=== PATIENT | female | born 1940 | race Caucasian/White ===

== ENCOUNTER 2016-02-24 17:16 | Outpatient (RCR) | payer MEDICARE ==
[2016-02-24 17:56] LABS: ALBUMIN 4.1 g/dL (3.4-5.0); ALKALINE PHOSPHATASE 48 U/L (38-126); ANION GAP 15.5 MEQ/L (3-15); BUN/CREATININE RATIO 18 (10-20); TOTAL PROTEIN 6.4 g/dL (6.4-8.5)
[2016-02-25 09:01] LABS: MEAN CORPUSCULAR HGB CONC 32.6 g/dL (31.0-37.0); PLATELET COUNT 71 10^3uL (150-450); WHITE BLOOD COUNT 8.75 10^3uL (4.0-11.0)
[2016-02-25 09:06] LABS: MEAN CORPUSCULAR HEMOGLOBIN 32.9 PG (26.0-34.0); MEAN CORPUSCULAR VOLUME 101 FL (80-100)
[2016-02-25 09:37] LABS: BAND NEUTROPHILS % 5 % (0-6)
[2016-02-25 09:38] LABS: EOSINOPHILS % 2 % (0-4); LYMPHOCYTES # 1.6 #; MONOCYTES # 1.8 #; MONOCYTES % 22 % (3-11); NUCLEATED RED BLOOD CELLS 3; RBC MORPH SEE REFERENCE (NORMAL); SEGMENTED NEUTROPHILS % 53 % (51-67); TOTAL CELLS COUNTED 100
[2016-02-25 09:39] LABS: ANISOCYTOSIS SLIGHT; MICROCYTOSIS SLIGHT
[2016-02-25 13:19] LABS: GGT 16 U/L (3-36)
== END 2016-05-24 | disposition home or self-care (01) ==
LOC: LAB 17:16 → EDSTATUS 02-25 08:36
PROVIDERS: ATTEND Internal Medicine Hematology & Oncology
DX: D69.3 Immune thrombocytopenic purpura (principal); D53.9 Nutritional anemia, unspecified; D69.6 Thrombocytopenia, unspecified; B18.2 Chronic viral hepatitis C
CPT/HCPCS: 36415; 80048; 80053; 80076; 82248; 82977; 83010; 83615; 85025; 85610

== ENCOUNTER 2016-03-25 09:41 | Day surgery (SDC) | payer MEDICARE ==
[~2016-03-25] VITALS: Ht 160 cm; Wt 80.0 kg
[2016-03-25] VITALS (8 sets, daily range): BP systolic 115–152; BP diastolic 49–79
[~2016-03-25 09:41] MED LIST: ACETAMINOPHEN 500 MG TAB (TYLENOL) PO SCH; AMLO10TA4; AMLO10TA82 PO; ASPI-479; ASPI325T4 PO; ATOR40TA2 PO; AZIT250T81 PO; CETI-262 PO; CYCL1DRO OU; CYCL1DRO2 OP; ENAL20TA74; FA/V1CAP2 PO; FERR-74 PO; INDA2.5T2; KCL20TCR; LACTATED RINGERS 1,000 ML IV SCH; LSNP10T PO; LSNP20T PO; MELO-249 PO; MELO-255; MELO-255 PO; MULT-1026 PO; OMEG300C3; OMEP20CA12 PO; OMG1KC PO; SODIUM CHLORIDE FLUSH 3 ML SYR IV SCH; SULF-228 PO; VIT1CAPS9 PO; [UNRECOGNIZED DRUG - CODE]; ceFAZolin 2,000 MG in SODIUM CHLORIDE VIAL (PF) 20 ML IV SCH; oxyCODONE IMMEDIATE RELEASE 5 MG (OXYIR) TAB PO SCH
[2016-03-25] MEDS ORDERED: BUPIVACAINE/EPINEPHRINE 0.25%-1:200,000 (MARCAINE) 30 ML VIAL INJ ONE (11:27)
[2016-03-25] MEDS ORDERED: LIDOCAINE/EPINEPHRINE 1%-1:100,000 (XYLOCAINE) 20ML VIAL ONE (11:27)
[2016-03-25] MEDS ORDERED: HEPARIN 5000 UNIT/0.5 ML SYRINGE ONE (11:27)
[2016-03-25] MEDS ORDERED: SODIUM CHLORIDE FLUSH 20 ML ONE (11:27)
[2016-03-25] MEDS ORDERED: ALFENTANIL 500 MCG/ML (ALFENTA) 5 ML AMP IV ONE (11:33)
[2016-03-25] MEDS ORDERED: MIDAZOLAM 2 MG/2 ML (VERSED) VIAL ONE (11:33)
[2016-03-25] MEDS ORDERED: PROPOFOL 20 ML IV ONE (11:35)
[2016-03-25] MEDS ORDERED: ceFAZolin 1000 MG (ANCEF) VIAL ONE (11:47)
--- NOTE | 2016-03-25 13:06 | Post Operative Note (E) ---
Post Op Note 03/25/16 13:05 Pre-Operative Diagnosis: Myelodysplastic syndrome, need for IV access Post-Operative Diagnosis: Same Procedure: Power port insertion, right IJ Surgeon: Aren [employer] Para Professional: Chelsie Findings: Same Anesthesia: Local, IVCS EBL: 25 ml Drains: None. Power port lot #[id number] Specimem: None Complications None Condition: Good. Op note dict #[id number] KAREN MACK MD Mar 25, 2016 13:06
--- NOTE | 2016-03-25 13:11 | Diagnostic Imaging Report ---
EXAMINATION: CHEST single view. Fluoroscopic assistance with procedure. CLINICAL INDICATION: 75-year-old female, placement of port catheter. COMPARISON: None. FINDINGS: 9 seconds of fluoroscopic time was utilized for assistance with placement of portacatheter. There is a right-sided port catheter with tip overlying the upper SVC. Heart size and mediastinal contours are within normal limits. There is no identified pneumothorax. There is material partially obscuring visualization of the right lung base. There is no large pleural effusion. There is no identified focal airspace consolidation. IMPRESSION: Fluoroscopy for assistance with placement of a right-sided port catheter. No identified complication of the port catheter placement. Dictated by: Dictated on workstation # [id number]
[2016-03-25] MEDS ORDERED: ONDANSETRON 2 MG/ML (Z0FRAN) 2 ML VIAL IV PRN (13:25)
--- NOTE | 2016-03-25 13:43 | OPERATIVE REPORT ---
DATE OF OPERATION: 03/25/2016 PRE-OPERATIVE DIAGNOSIS: Myelodysplastic syndrome and need for chemotherapy IV access. POST-OPERATIVE DIAGNOSIS: Myelodysplastic syndrome and need for chemotherapy IV access. OPERATIVE PROCEDURE: Insertion of PowerPort right internal jugular vein under fluoroscopic and ultrasound guidance. SURGEON: Froy Younger MD [employer] WORKER: Cori Holguin RN, CSFA ANESTHESIA: Local 0.125% Marcaine plus 0.5% lidocaine and IV conscious sedation, Monitored Anesthesia Services. POSITION: Trendelenburg PREP: Chlorhexidine ESTIMATED BLOOD LOSS: 25 mL OPERATIVE NOTE: Following satisfactory induction of analgesia the venous anatomy of the neck was interrogated and appropriate positions marked using ultrasound. The patient was prepped and draped in sterile fashion. Local anesthetic was infiltrated in the right mid neck and a small skin darin made. Under real-time ultrasound guidance the internal jugular vein was accessed through this opening and the guidewire advanced into the vena cava. This was confirmed on fluoroscopic evaluation. Next local anesthetic was infiltrated on the right anterior chest wall and a skin crease incision made. This was carried down to the pectoral fascia. A pocket for the port was created caudal to the incision with blunt dissection. Additional local anesthetic was infiltrated and the PowerPort catheter, Lot #[id number] was tunneled from the port site in the chest wall to the internal jugular vein insertion site in the right neck. Using fluoroscopic guidance the catheter placed on the anterior chest wall was cut to the appropriate length on bevel. The opposite end was attached to the port. Under fluoroscopic guidance the dilator peel-away sheath assembly was advanced over the guidewire into the superior vena cava. The guidewire and dilator were removed. The catheter was advanced through the peel-away sheath under fluoroscopic guidance to the junction of the superior vena cava and right atrium. The peel-away sheath was removed. Aspiration through the port revealed excellent blood return and the port flushed readily with saline followed by heparinized saline 100 units/mL. The port was secured to the fascia on either side with 2-0 Prolene suture. Final inspection with fluoroscope revealed excellent course and position of the catheter. Closure was accomplished as follows. The subcutaneous tissues were reapproximated with simple interrupted 3-0 Vicryl suture and the skin incisions closed with continuous subcuticular suture of 4-0 Monocryl and Dermabond dressing. The patient tolerated the procedure well and transferred to recovery in stable condition. Final instrument, needle and sponge counts correct. Post procedure chest x-ray pending.
--- NOTE | 2016-03-25 13:50 | NUR ---
O2 SAT TO UPPER 70S WHEN PATIENT FALLS ASLEEP. SATS TO >88% WHEN AWAKE. PATIENT VERY SLEEPY WITH HX OF SLEEP APNEA. O2 APPLIED AT 2L NC.
--- NOTE | 2016-03-25 14:59 | NUR ---
PATIENT AWAKE AND EATING. O2 REMOVED. WILL MONITOR SATS.
--- NOTE | 2016-03-25 15:36 | NUR ---
O2 SATURATION UPPER 70S ON RA AFTER FALLING ASLEEP. PATIENT AWAKENED AND TOLD TO TAKE A COUPLE OF DEEP BREATHS. O2 TO 98% QUICKLY. THIS TREND CONTINUES OFF AND ON WHEN PATIENT FALLS ASLEEP. RESPIRATORY STATUS REPORTED TO Devika DUVALL CRNA. PT DOES PLAN TO GO HOME AND WEAR CPAP THROUGH AFTERNOON AND ANY TIME SHE IS SITTING DOWN RESTING. PATIENT EDUCATED THAT SATS DROP SIGNIFICANTLY WHILE SHE IS RESTING AND THAT IT IS IMPORTANT FOR HER TO WEAR CPAP EVEN IF SHE IS JUST SITTING DOWN TO WATCH TV. PATIENT VERBALIZES UNDERSTANDING AND HAS NO CONCERNS AT THIS TIME. DAUGHTER TO BE EDUCATED ON THIS WELL AND ENCOURAGED TO STAY WITH PATIENT INTO THE EVENING.
--- NOTE | 2016-03-25 15:50 | NUR ---
DISCUSSED PATIENT'S O2 SATURATIONS WITH PATIENT AND DAUGHTER. DAUGHTER INFORMED THAT SOMEONE SHOULD STAY WITH PATIENT THROUGH THE EVENING AT LEAST AND THAT PATIENT SHOULD WEAR CPAP THROUGH THIS EVENING/OVERNIGHT. THIS NURSE EXPLAINED THAT PATIENT COULD STAY OVERNIGHT IN THE HOSPITAL FOR OBSERVATION OF OXYGEN. PATIENT AND DAUGHTER ARE COMFORTABLE WITH PATIENT GOING HOME AND WEARING CPAP WITH DAUGHTER PRESENT.
== END 2016-03-25 16:00 | disposition home or self-care (01) ==
LOC: ASC 09:41
PROVIDERS: ATTEND Surgery
DX: D46.9 Myelodysplastic syndrome, unspecified (principal); I10 Essential (primary) hypertension; E78.5 Hyperlipidemia, unspecified; G47.33 Obstructive sleep apnea (adult) (pediatric); E66.9 Obesity, unspecified; Z68.32 Body mass index [BMI] 32.0-32.9, adult
CPT/HCPCS: 36561; 77001; A9270; C1788; J0690; J1644; J2250; J7120

== ENCOUNTER 2016-04-04 10:23 | Outpatient (RCR) | payer MEDICARE ==
[2016-04-04] VITALS (19 sets, daily range): BP systolic 115–140; BP diastolic 43–64
[~2016-04-04 10:23] MED LIST changes: -ACETAMINOPHEN 500 MG TAB (TYLENOL) PO SCH; -LACTATED RINGERS 1,000 ML IV SCH; -SODIUM CHLORIDE FLUSH 3 ML SYR IV SCH; -ceFAZolin 2,000 MG in SODIUM CHLORIDE VIAL (PF) 20 ML IV SCH; -oxyCODONE IMMEDIATE RELEASE 5 MG (OXYIR) TAB PO SCH
[2016-04-04] MEDS ORDERED: SODIUM CHLORIDE FLUSH 10 ML SYR IV PRN (11:54)
[2016-04-04] MEDS ORDERED: LMX 4 KIT (LIDOCAINE 4% 5 GM TUBE/TRANSPARENT DRESSING) TOP PRN (11:54)
[2016-04-04] MEDS ORDERED: ACETAMINOPHEN 325 MG TAB (TYLENOL) PO SCH (11:54)
[2016-04-04] MEDS ORDERED: NS 250 ML (IVPB) BAG IV SCH (11:54)
[2016-04-04] MEDS ORDERED: SODIUM CHLORIDE FLUSH 3 ML SYR IV PRN (11:54)
[2016-04-04] MEDS ORDERED: diphenhydrAMINE 25 MG (BENADRYL) TABLET PO SCH (11:54)
--- NOTE | 2016-04-04 15:00 | NUR ---
Pt arrives to 316 for outpatient blood transfusion accompanied by daughter.
--- NOTE | 2016-04-04 17:09 | NUR ---
[facility] subclavian port access d/t pt's port being new and not easily accessed. 1st unit of blood started at 1649. Vital signs WNL. Pt denies S/S of reaction. Pt resting in chair at this time. Call light within reach.
--- NOTE | 2016-04-04 18:16 | NUR ---
Blood transfusion @ 125mL/hr continues. Pt states she is feeling fine. Eating dinner tray and watching TV. Call light within reach. Informed pt to call us if she needs to use RR so we can help with the IV pole.
--- NOTE | 2016-04-04 19:31 | NUR ---
First unit of Blood infused without difficulty. Flushed with NS. Patient tolerated well.
--- NOTE | 2016-04-04 19:45 | NUR ---
VS: BP-124/52 68-16 Temp 97.8 #2 Unit of Blood hung and infusing at 75 cc an hour. BP-123/50 P-93-18 97.6
--- NOTE | 2016-04-04 20:15 | NUR ---
Patient resting in recliner. Tolerating infusion well. Vitals stable.
--- NOTE | 2016-04-04 22:15 | NUR ---
Blood infused and flushed with NS. Port flushed per protocol and de-accessed without difficulty. BP-129/60 62-16 Temp 97.8. Sat-96%. Patient ambulated to car per request, felt she needed to walk, and felt strong enough. Escorted to car by Janina QUIROZ, and her daughter.
== END 2016-07-03 | disposition home or self-care (01) ==
LOC: EUOP 10:23 → MED/SURG 14:53 → EUOP 14:53
PROVIDERS: ATTEND Internal Medicine Hematology & Oncology
DX: D64.9 Anemia, unspecified (principal)
CPT/HCPCS: 36415; 36430; 85014; 85018; 86850; 86900; 86901; 86920; A9270; P9040

== ENCOUNTER 2016-04-09 09:44 | Emergency (ER) | payer MEDICARE ==
[~2016-04-09] VITALS: Ht 160 cm; Wt 80.0 kg
[2016-04-09] MEDS ORDERED: OXYMETAZOLINE 0.05% NASAL SPRAY (AFRIN) 15 ML BTL ONE ×2 (10:02→10:15)
[2016-04-09] MEDS ORDERED: ACETAMINOPHEN 500 MG TAB (TYLENOL) PO ONE (10:40)
[2016-04-09] MEDS ORDERED: DENTAL BOX (GENERAL DRUG SUPPLY CHARGE) MM ONE ×2 (11:25→11:30)
[2016-04-09 11:47] VITALS: BP 137/71
== END 2016-04-09 11:36 | disposition home or self-care (01) ==
LOC: EDUNIT# 09:44 → ED 09:46
DX: R04.0 Epistaxis (principal); D46.9 Myelodysplastic syndrome, unspecified
CPT/HCPCS: 30901; 99283; A9270; 99282

== ENCOUNTER → 2016-04-09 | Outpatient (CLI) | payer MEDICARE | LOC: MHUC 09:21 | PROVIDERS: ATTEND Physician Assistant | DX: R04.0 Epistaxis (principal) ==

== ENCOUNTER 2016-04-11 12:08 | Outpatient (RCR) | payer MEDICARE ==
[2016-04-11] VITALS (25 sets, daily range): BP systolic 109–142; BP diastolic 39–62
[~2016-04-11] VITALS: Ht 160 cm; Wt 80.0 kg
[2016-04-11] MEDS ORDERED: ACETAMINOPHEN 325 MG TAB (TYLENOL) PO SCH (14:55)
[2016-04-11] MEDS ORDERED: diphenhydrAMINE 25 MG (BENADRYL) TABLET PO SCH (14:56)
[2016-04-11] MEDS ORDERED: SODIUM CHLORIDE 250 ML IV SCH (14:57)
[2016-04-11] MEDS: SODIUM CHLORIDE FLUSH 10 ML SYR IV SCH ×2 (15:37→22:10)
--- NOTE | 2016-04-11 17:11 | NUR ---
1435-Pt arrives with daughter. Escorted to room 301. Plan of care discussed with patient. Benadryl 25mg PO given as pre med per order. Tylenol not given due to patient taking Tylenol at home prior to coming. Dr. Hirsch notified and orders received. Port was access by cancer center this am. Prior to Platelets beginnings, vitals stable, port flushed with good blood return.
--- NOTE | 2016-04-11 19:45 | NUR ---
Second unit of blood started now. Verified with Joycelyn Blackburn RN. Infusion began at 100 ml/hr. VSS. Pt denies pain.
--- NOTE | 2016-04-11 20:02 | NUR ---
Blood increased to 125 ml/hr. Pt tolerating well; denies needs. Daughter at bedside.
--- NOTE | 2016-04-11 22:10 | NUR ---
Blood finished at this time. Pt tolerates well. Port a cath deaccessed without difficulty.
--- NOTE | 2016-04-11 22:20 | NUR ---
Pt dismissed to home with family at this time.
== END 2016-04-11 22:20 | disposition home or self-care (01) ==
LOC: EDSTATUS 12:08 → EUOP 12:08 → MED/SURG 14:35 → EUOP 22:20
PROVIDERS: ATTEND Internal Medicine Hematology & Oncology
DX: D69.6 Thrombocytopenia, unspecified (principal); D64.9 Anemia, unspecified
CPT/HCPCS: 36415; 85014; 85018; 85049; 86850; 86900; 86901; 86920; A9270; J1642; J7050; P9037; P9040; 36430

== ENCOUNTER 2016-04-19 13:59 | Outpatient (RCR) | payer MEDICARE ==
[2016-04-19] VITALS (12 sets, daily range): BP systolic 115–150; BP diastolic 34–59
[~2016-04-19 13:59] MED LIST changes: +ACETAMINOPHEN 325 MG TAB (TYLENOL) PO SCH; -AMLO10TA4; -AMLO10TA82 PO; -ASPI-479; -ASPI325T4 PO; -ATOR40TA2 PO; -AZIT250T81 PO; -CETI-262 PO; -CYCL1DRO OU; -CYCL1DRO2 OP; -ENAL20TA74; -FA/V1CAP2 PO; -FERR-74 PO; -INDA2.5T2; -KCL20TCR; +LMX 4 KIT (LIDOCAINE 4% 5 GM TUBE/TRANSPARENT DRESSING) TOP PRN; -LSNP10T PO; -LSNP20T PO; -MELO-249 PO; -MELO-255; -MELO-255 PO; -MULT-1026 PO; +NS 250 ML (IVPB) BAG IV SCH; -OMEG300C3; -OMEP20CA12 PO; -OMG1KC PO; +SODIUM CHLORIDE FLUSH 10 ML SYR IV PRN; +SODIUM CHLORIDE FLUSH 3 ML SYR IV PRN; -SULF-228 PO; -VIT1CAPS9 PO; -[UNRECOGNIZED DRUG - CODE]; +diphenhydrAMINE 25 MG (BENADRYL) TABLET PO SCH
--- NOTE | 2016-04-19 17:31 | NUR ---
1400- patient arrives to room [address] LAC 20 gauge 1430- IV flushed and blood verified 1448- First unit of PRBC begins at this time. 125cc/hr. VSS and WNL. 1503- PRBC infusion increased to 175cc/hr. VSS. Patient has no complaints. 1630- First unit of PRBC infusion ends at this time. VSS 1700- 2nd unit of PRBC begins at 125cc/hr. 1745- 2nd unit increased to 175cc/hr. The patient has no complaints and VSS and WNL.
--- NOTE | 2016-04-19 19:23 | NUR ---
1840- 2nd unit of PRBC is complete at this time. Patient is in room finishing dinner and daughter is at the bedside. 1909- The patients IV is removed and gauze pad in place with tape. 1914- The patient escorts the building with daughter at this time.
== END 2016-04-19 17:15 | disposition home or self-care (01) ==
LOC: EUOP 13:59 → ICU 14:00 → EUOP 17:15
PROVIDERS: ATTEND Internal Medicine Hematology & Oncology
DX: D64.9 Anemia, unspecified (principal)
CPT/HCPCS: 36415; 85014; 85018; 86850; 86900; 86901; 86920; A9270; J7050; P9040; 36430

== ENCOUNTER → 2016-04-20 | Outpatient (CLI) | payer MEDICARE | LOC: RAD 10:17 | PROVIDERS: ATTEND Internal Medicine Hematology & Oncology | DX: T82.9XXA Unspecified complication of cardiac and vascular prosthetic device, implant and graft, initial encounter (principal) | CPT/HCPCS: 77001; Q9967 ==

== ENCOUNTER 2016-05-16 15:32 | Outpatient (RCR) | payer MEDICARE ==
[~2016-05-16] VITALS: Ht 160 cm; Wt 81.4 kg
[2016-05-16] VITALS (17 sets, daily range): BP systolic 118–148; BP diastolic 45–53
[~2016-05-16 15:32] MED LIST changes: +AMLO10TA4; +AMLO10TA82 PO; +ASPI-479; +ASPI325T4 PO; +ATOR40TA2 PO; +AZIT250T81 PO; +CETI-262 PO; +CYCL1DRO OU; +CYCL1DRO2 OP; +ENAL20TA74; +FA/V1CAP2 PO; +FERR-74 PO; +INDA2.5T2; +KCL20TCR; -LMX 4 KIT (LIDOCAINE 4% 5 GM TUBE/TRANSPARENT DRESSING) TOP PRN; +LSNP10T PO; +LSNP20T PO; +MELO-249 PO; +MELO-255; +MELO-255 PO; +MULT-1026 PO; -NS 250 ML (IVPB) BAG IV SCH; +OMEG300C3; +OMEP20CA12 PO; +OMG1KC PO; +SODIUM CHLORIDE 250 ML IV SCH; -SODIUM CHLORIDE FLUSH 10 ML SYR IV PRN; -SODIUM CHLORIDE FLUSH 3 ML SYR IV PRN; +SULF-228 PO; +VIT1CAPS9 PO; +[UNRECOGNIZED DRUG - CODE]
[2016-05-16] MEDS: SODIUM CHLORIDE FLUSH 10 ML SYR IV SCH ×2 (15:50→20:36)
--- NOTE | 2016-05-16 15:56 | NUR ---
Pt. arrives to 341 ambulatory from admissions for blood transfusion at 1539. Pt. has L chest port which is already accessed, good blood return and flushes easily. VSS. Afebrile. Premeds have been given. Addendum: 05/16/16 at 1624 by Saray Shine RN Correction: Port is in R chest.
--- NOTE | 2016-05-16 16:13 | NUR ---
1st unit LR-irradiated PRBC started at this time at 125ml/hr.
--- NOTE | 2016-05-16 16:15 | NUR ---
Meal menu provided to pt. for dinner tray. Regular diet order placed per written order.
--- NOTE | 2016-05-16 16:29 | NUR ---
Pt. tolerating transfusion well. VSS. Rate increased to 150ml/hr.
--- NOTE | 2016-05-16 18:16 | NUR ---
1st unit PRBC complete, pt. tolerated well without s/s of transfusion reaction. VSS. Pt. ate 75% of meal tray.
--- NOTE | 2016-05-16 18:28 | NUR ---
2nd unit LR-irradiated PRBC initiated at this time.
--- NOTE | 2016-05-16 18:47 | NUR ---
Pt. tolerating transfusion well, VSS, rate increased to 150ml/hr.
--- NOTE | 2016-05-16 20:50 | NUR ---
Second transfusion complete, flushed, hep locked and then de accessed, area cleaned and sterile 2x2 covering. Patient VS stable as charted, denied any c/o, patient voided, left floor via wheelchair accompanied by BRISKET PULLER and daughter.
== END 2016-08-14 | disposition home or self-care (01) ==
LOC: EUOP 15:32 → ICU 15:34 → EUOP 20:50
PROVIDERS: ATTEND Internal Medicine Hematology & Oncology
DX: D46.9 Myelodysplastic syndrome, unspecified (principal); D63.8 Anemia in other chronic diseases classified elsewhere; D53.9 Nutritional anemia, unspecified
CPT/HCPCS: 36415; 36430; 85014; 85018; 86850; 86900; 86901; 86920; A9270; J1642; J7050; P9040

== ENCOUNTER → 2016-05-30 | Outpatient (CLI) | payer MEDICARE | LOC: RAD 15:58 | PROVIDERS: ATTEND Physician Assistant Medical | DX: R10.12 Left upper quadrant pain (principal); R16.1 Splenomegaly, not elsewhere classified; Z90.49 Acquired absence of other specified parts of digestive tract | CPT/HCPCS: 76700 ==

== ENCOUNTER 2016-06-06 11:17 | Outpatient (RCR) | payer MEDICARE ==
[2016-06-06] VITALS (31 sets, daily range): BP systolic 116–156; BP diastolic 37–60
[~2016-06-06] VITALS: Ht 166.4 cm; Wt 80.0 kg
[~2016-06-06 11:17] MED LIST changes: -ACETAMINOPHEN 325 MG TAB (TYLENOL) PO SCH; -SODIUM CHLORIDE 250 ML IV SCH; -diphenhydrAMINE 25 MG (BENADRYL) TABLET PO SCH
[2016-06-06] MEDS ORDERED: SODIUM CHLORIDE FLUSH 10 ML SYR IV PRN (13:50)
[2016-06-06] MEDS ORDERED: diphenhydrAMINE 25 MG (BENADRYL) TABLET PO SCH (13:50)
[2016-06-06] MEDS ORDERED: NS 250 ML (IVPB) BAG IV SCH ×2 (13:50→16:30)
[2016-06-06] MEDS ORDERED: ACETAMINOPHEN 325 MG TAB (TYLENOL) PO SCH (13:50)
[2016-06-06] MEDS ORDERED: LMX 4 KIT (LIDOCAINE 4% 5 GM TUBE/TRANSPARENT DRESSING) TOP PRN (13:50)
--- NOTE | 2016-06-06 15:53 | NUR ---
Pt. received to [facility] for blood and platelet transfusion. Pt. arrived via , assisted into recliner. VSS.
[2016-06-06] MEDS ORDERED: SODIUM CHLORIDE 250 ML ONE (16:10)
--- NOTE | 2016-06-06 16:31 | NUR ---
Pt. arrived with R chest port-a-cath accessed with 19g power port shaver needle. Good blood return, flushed well. Premeds have been given. LR-irr PRBC 1st unit started at this time.
--- NOTE | 2016-06-06 16:47 | NUR ---
Pt. has tolerated first 15 mins of transfusion well, without s/s of reaction. Rate increased to 150ml/hr.
--- NOTE | 2016-06-06 18:47 | NUR ---
1st unit PRBC complete. Pt. tolerated well, without s/s of reaction. VSS.
--- NOTE | 2016-06-06 18:53 | NUR ---
2nd unit PRBC started at this time. VSS.
--- NOTE | 2016-06-06 19:10 | NUR ---
Pt. tolerating 2nd unit PRBC transfusion well, no s/s of reaction. VSS. Rate increased to 150ml/hr.
--- NOTE | 2016-06-06 19:45 | NUR ---
Patient continues to tolerate transfusion well. Cooperative with cares. Call light within reach.
--- NOTE | 2016-06-06 20:53 | NUR ---
#2 Unit of Blood infused and patient tolerated well.
--- NOTE | 2016-06-06 21:29 | NUR ---
#1 Unit of Platelet's hung and infusing well via pump.
--- NOTE | 2016-06-06 23:46 | NUR ---
Last bag of platelets hung and flushed with NS, then flushed per protocol. Port de-accessed without difficulty. Pressure to area for 5 minutes. Vitals have remained stable. Patient tolerated transfusions well.
--- NOTE | 2016-06-06 23:50 | NUR ---
Patient discharged per wheelchair. Transported to her sons vehicle near the ED entrance.
[2016-06-07 01:20] VITALS: BP 143/46
== END 2016-08-17 18:29 | disposition home or self-care (01) ==
LOC: LAB 11:17 → MED/SURG 15:46 → EUOP 23:50
PROVIDERS: ATTEND Internal Medicine Hematology & Oncology
DX: D46.9 Myelodysplastic syndrome, unspecified (principal)
CPT/HCPCS: 36415; 36430; 85014; 85018; 85049; 86850; 86900; 86901; 86920; A9270; J7050; P9037; P9040

== ENCOUNTER 2016-06-07 10:30 | Outpatient (RCR) | payer MEDICARE ==
[2016-06-07] VITALS (23 sets, daily range): BP systolic 121–148; BP diastolic 5–57
[2016-06-07] MEDS ORDERED: diphenhydrAMINE 25 MG (BENADRYL) TABLET PO SCH (13:12)
[2016-06-07] MEDS ORDERED: LMX 4 KIT (LIDOCAINE 4% 5 GM TUBE/TRANSPARENT DRESSING) TOP PRN (13:12)
[2016-06-07] MEDS ORDERED: NS 250 ML (IVPB) BAG IV SCH (13:12)
[2016-06-07] MEDS ORDERED: ACETAMINOPHEN 325 MG TAB (TYLENOL) PO SCH (13:12)
[2016-06-07] MEDS ORDERED: SODIUM CHLORIDE FLUSH 10 ML SYR IV PRN (13:12)
--- NOTE | 2016-06-07 13:20 | NUR ---
Patient arrived on floor for outpatient infusing of packed red blood cells and platelets. Alert, oriented and in good spirits. Port is already accessed and patient states she is to remain accessed at dismissal. See blood administration interventions.
--- NOTE | 2016-06-07 18:00 | NUR ---
patient c/o a little labored breathing. IV pump turned stopped temporarily. Patient up to void. Upon returning to recliner patient's respirations were 20. SaO2 in 90's. Lungs clear to auscultation. Rate reduced from 200 mls/hr to 150 mls/hr. Patient educated to report if feeling worse. Blood pressure up slightly. Recognize that patient has been up to bathroom prior to BP measurement.
--- NOTE | 2016-06-07 18:11 | NUR ---
BP now back to baseline readings. Current reading 128/50.
--- NOTE | 2016-06-07 19:30 | NUR ---
Unit #2 of PRBC's finished at this time.
--- NOTE | 2016-06-07 19:40 | NUR ---
Unit #1 of Platelets started at this time.
--- NOTE | 2016-06-07 21:00 | NUR ---
Unit #1 of Platelets finished at this time.
--- NOTE | 2016-06-07 21:15 | NUR ---
Unit #2 of platelets started at this time.
--- NOTE | 2016-06-07 22:25 | NUR ---
Unit #2 of Platelets finished.
--- NOTE | 2016-06-07 22:50 | NUR ---
Patient dismissed at this time.
== END 2016-08-17 18:29 | disposition home or self-care (01) ==
LOC: EUOP 10:30 → MED/SURG 13:15 → EUOP 22:50
PROVIDERS: ATTEND Internal Medicine Hematology & Oncology
DX: D53.9 Nutritional anemia, unspecified (principal); D46.9 Myelodysplastic syndrome, unspecified
CPT/HCPCS: 36430; 85014; 85018; 85049; 86850; 86900; 86901; 86920; A9270; J7050; P9037; P9040; 36415

== ENCOUNTER → 2016-06-07 | Outpatient (CLI) | payer MEDICARE ==
[2016-06-07 09:21] LABS: MEAN CORPUSCULAR HEMOGLOBIN 30.2 PG (26.0-34.0); MEAN CORPUSCULAR HGB CONC 32.5 g/dL (31.0-37.0); MEAN CORPUSCULAR VOLUME 93 FL (80-100); WHITE BLOOD COUNT 2.56 10^3uL (4.0-11.0)
[2016-06-07 09:47] LABS: PLATELET COUNT 7 10^3uL (150-450)
[2016-06-07 09:48] LABS: BAND NEUTROPHILS % 4 % (0-6); EOSINOPHILS % 2 % (0-4); LYMPHOCYTES # 0.8 #; MONOCYTES % 2 % (3-11); SEGMENTED NEUTROPHILS % 59 % (51-67)
[2016-06-07 09:49] LABS: ANISOCYTOSIS SLIGHT; RBC MORPH SEE REFERENCE (NORMAL); TOTAL CELLS COUNTED 100
== END ==
LOC: LAB 09:10
PROVIDERS: ATTEND Internal Medicine Hematology & Oncology
DX: D53.9 Nutritional anemia, unspecified (principal); D46.Z Other myelodysplastic syndromes
CPT/HCPCS: 36415; 85025

== ENCOUNTER → 2016-06-07 | Outpatient (REF) | payer MEDICARE | LOC: LAB 10:25 | PROVIDERS: ATTEND Internal Medicine Hematology & Oncology | DX: Z53.9 Procedure and treatment not carried out, unspecified reason (principal) ==

== ENCOUNTER 2016-06-08 11:00 | Outpatient (RCR) | payer MEDICARE ==
[2016-06-08] VITALS (13 sets, daily range): BP systolic 116–145; BP diastolic 48–69
[2016-06-08 09:13] LABS: MEAN CORPUSCULAR HEMOGLOBIN 29.5 PG (26.0-34.0); MEAN CORPUSCULAR HGB CONC 33.7 g/dL (31.0-37.0); MEAN CORPUSCULAR VOLUME 87 FL (80-100); PLATELET COUNT 6 10^3uL (150-450); WHITE BLOOD COUNT 1.79 10^3uL (4.0-11.0)
[2016-06-08 10:12] LABS: ANISOCYTOSIS SLIGHT; BAND NEUTROPHILS % 7 % (0-6); EOSINOPHILS % 1 % (0-4); LYMPHOCYTES # 0.6 #; MONOCYTES % 2 % (3-11); RBC MORPH SEE REFERENCE (NORMAL); SEGMENTED NEUTROPHILS % 56 % (51-67); TOTAL CELLS COUNTED 100
[2016-06-08 10:13] LABS: MICROCYTOSIS SLIGHT
[2016-06-08] MEDS ORDERED: NS 250 ML (IVPB) BAG IV SCH (12:25)
[2016-06-08] MEDS ORDERED: LMX 4 KIT (LIDOCAINE 4% 5 GM TUBE/TRANSPARENT DRESSING) TOP PRN (12:25)
[2016-06-08] MEDS ORDERED: ACETAMINOPHEN 325 MG TAB (TYLENOL) PO SCH (12:25)
[2016-06-08] MEDS ORDERED: SODIUM CHLORIDE FLUSH 10 ML SYR IV PRN (12:25)
[2016-06-08] MEDS ORDERED: SODIUM CHLORIDE FLUSH 3 ML SYR IV PRN (12:25)
[2016-06-08] MEDS ORDERED: diphenhydrAMINE 25 MG (BENADRYL) TABLET PO SCH (12:25)
--- NOTE | 2016-06-08 13:22 | NUR ---
Patient arrives to room 302 via wheelchair. Alert and oriented X3. Port-a-cath accessed. Denies pain or distress. Updated on plan of care for transfusion. Call light in reach.
--- NOTE | 2016-06-08 14:16 | NUR ---
First unit of platelets initiated at this time at a rate of 100ml/hour. Verified by Cassy Vargas RN. Will continue with direct observation for 15 minutes.
--- NOTE | 2016-06-08 14:31 | NUR ---
Patient tolerates first fifteen minutes without adverse reaction. Rate increased to 200ml/hour.
--- NOTE | 2016-06-08 15:31 | NUR ---
First unit of platelets transfused without adverse reaction.
--- NOTE | 2016-06-08 15:36 | NUR ---
Second unit of platelets initiated at this time at 100ml/hour. Verified by Marcella Logan RN. Will continue to directly observe patient for first fifteen minutes.
--- NOTE | 2016-06-08 16:51 | NUR ---
Patient tolerates second unit of platelets without adverse reaction. Alie-cath heparinized [facility]. Patient informed to report to clinic in AM for blood draw. Dismissed via wheelchair to private car accompanied by this nurse. No further needs.
== END 2016-06-08 16:51 | disposition home or self-care (01) ==
LOC: EUOP 11:00 → MED/SURG 13:09 → EUOP 16:51
PROVIDERS: ATTEND Internal Medicine Hematology & Oncology
DX: D46.Z Other myelodysplastic syndromes (principal)
CPT/HCPCS: 36430; 85025; A9270; J1642; J7050; P9037

== ENCOUNTER → 2016-06-09 | Outpatient (REF) | payer MEDICARE ==
[2016-06-09 08:58] LABS: MEAN CORPUSCULAR HEMOGLOBIN 29.8 PG (26.0-34.0); MEAN CORPUSCULAR HGB CONC 33.7 g/dL (31.0-37.0); MEAN CORPUSCULAR VOLUME 88 FL (80-100); MEAN PLATELET VOLUME 11.7 FL (6.0-9.5)
[2016-06-09 09:23] LABS: WHITE BLOOD COUNT 1.46 10^3uL (4.0-11.0)
[2016-06-09 09:24] LABS: PLATELET COUNT 22 10^3uL (150-450)
[2016-06-09 09:38] LABS: ANISOCYTOSIS SLIGHT; BAND NEUTROPHILS % 1 % (0-6); EOSINOPHILS % 1 % (0-4); LYMPHOCYTES # 0.6 #; MICROCYTOSIS SLIGHT; MONOCYTES % 4 % (3-11); RBC MORPH SEE REFERENCE (NORMAL); SEGMENTED NEUTROPHILS % 50 % (51-67); TOTAL CELLS COUNTED 100
== END ==
LOC: LAB 08:43
PROVIDERS: ATTEND Internal Medicine Hematology & Oncology
DX: D46.Z Other myelodysplastic syndromes (principal); D53.9 Nutritional anemia, unspecified
CPT/HCPCS: 85007; 85027

== ENCOUNTER → 2016-07-06 | Outpatient (REF) | payer MEDICARE | LOC: LAB 08:36 | PROVIDERS: ATTEND Internal Medicine Hematology & Oncology | DX: Z53.8 Procedure and treatment not carried out for other reasons (principal) ==

== ENCOUNTER → 2016-07-08 | Outpatient (REF) | payer MEDICARE ==
[2016-07-08 09:05] LABS: BASOPHILS % (AUTO) 4 % (0-2); EOSINOPHILS % (AUTO) 1 % (0-4); LYMPHOCYTES # (AUTO) 0.4 X10^3; MEAN CORPUSCULAR HEMOGLOBIN 27.8 PG (26.0-34.0); MEAN CORPUSCULAR HGB CONC 32.7 g/dL (31.0-37.0); MEAN CORPUSCULAR VOLUME 85 FL (80-100); MONOCYTES % (AUTO) 2 % (3-11); NEUTROPHILS # (AUTO) 1.3 X10^3; NEUTROPHILS % (AUTO) 68 % (51-67)
[2016-07-08 09:07] LABS: PLATELET COUNT 24 10^3uL (150-450)
== END ==
LOC: LAB 08:49
PROVIDERS: ATTEND Internal Medicine Hematology & Oncology
DX: D53.9 Nutritional anemia, unspecified (principal); D69.6 Thrombocytopenia, unspecified; D46.Z Other myelodysplastic syndromes
CPT/HCPCS: 85025

== ENCOUNTER 2016-08-01 12:06 | Outpatient (RCR) | payer MEDICARE ==
[2016-08-01] VITALS (25 sets, daily range): BP systolic 109–138; BP diastolic 39–62
[2016-08-01 12:55] LABS: MEAN CORPUSCULAR HEMOGLOBIN 29.3 PG (26.0-34.0); MEAN CORPUSCULAR VOLUME 95 FL (80-100); WHITE BLOOD COUNT 5.51 10^3uL (4.0-11.0)
[2016-08-01 12:56] LABS: MEAN CORPUSCULAR HGB CONC 31.1 g/dL (31.0-37.0); PLATELET COUNT 10 10^3uL (150-450)
[2016-08-01 13:00] LABS: ANISOCYTOSIS MODERATE; BAND NEUTROPHILS % 3 % (0-6); EOSINOPHILS % 0 % (0-4); HYPOCHROMASIA MODERATE; LYMPHOCYTES # 0.6 #; MONOCYTES # 0.1 #; MONOCYTES % 1 % (3-11); POIKILOCYTOSIS SLIGHT; RBC MORPH SEE REFERENCE (NORMAL); SEGMENTED NEUTROPHILS % 85 % (51-67); TOTAL CELLS COUNTED 100
[2016-08-01] MEDS ORDERED: SODIUM CHLORIDE FLUSH 3 ML SYR IV SCH (13:55)
[2016-08-01] MEDS ORDERED: SODIUM CHLORIDE 250 ML IV SCH (13:55)
[2016-08-01] MEDS ORDERED: diphenhydrAMINE 25 MG (BENADRYL) TABLET PO SCH (14:00)
[2016-08-01] MEDS ORDERED: ACETAMINOPHEN 325 MG TAB (TYLENOL) PO SCH (14:00)
[2016-08-01] MEDS ORDERED: SODIUM CHLORIDE FLUSH 10 ML ONE ×2 (21:21→21:28)
== END 2016-08-17 18:30 | disposition home or self-care (01) ==
LOC: EUOP 12:06 → ICU 14:31 → EUOP 14:31
PROVIDERS: ATTEND Internal Medicine Hematology & Oncology
DX: D53.9 Nutritional anemia, unspecified (principal); D69.6 Thrombocytopenia, unspecified
CPT/HCPCS: 36430; 85025; 86850; 86900; 86901; 86920; A9270; J7050; P9037; P9040

== ENCOUNTER → 2016-08-03 | Outpatient (REF) | payer MEDICARE ==
[2016-08-03 09:06] LABS: MEAN CORPUSCULAR HEMOGLOBIN 29.8 PG (26.0-34.0); MEAN CORPUSCULAR HGB CONC 33.3 g/dL (31.0-37.0); MEAN CORPUSCULAR VOLUME 89 FL (80-100)
[2016-08-03 09:16] LABS: PLATELET COUNT 12 10^3uL (150-450)
[2016-08-03 09:17] LABS: ANISOCYTOSIS MODERATE; BAND NEUTROPHILS % 1 % (0-6); EOSINOPHILS % 1 % (0-4); LYMPHOCYTES # 0.7 #; MONOCYTES % 1 % (3-11); RBC MORPH SEE REFERENCE (NORMAL); SEGMENTED NEUTROPHILS % 75 % (51-67); TOTAL CELLS COUNTED 100
== END ==
LOC: LAB 08:55
PROVIDERS: ATTEND Internal Medicine Hematology & Oncology
DX: D53.9 Nutritional anemia, unspecified (principal); D46.Z Other myelodysplastic syndromes
CPT/HCPCS: 85025

== ENCOUNTER → 2016-08-05 | Outpatient (REF) | payer MEDICARE ==
[2016-08-05 09:36] LABS: MEAN CORPUSCULAR HEMOGLOBIN 29.1 PG (26.0-34.0); MEAN CORPUSCULAR HGB CONC 31.8 g/dL (31.0-37.0); MEAN CORPUSCULAR VOLUME 91 FL (80-100); PLATELET COUNT 24 10^3uL (150-450); WHITE BLOOD COUNT 2.57 10^3uL (4.0-11.0)
[2016-08-05 09:37] LABS: ANISOCYTOSIS MODERATE; BAND NEUTROPHILS % 5 % (0-6); EOSINOPHILS % 1 % (0-4); LYMPHOCYTES # 0.6 #; MONOCYTES % 2 % (3-11); RBC MORPH SEE REFERENCE (NORMAL); SEGMENTED NEUTROPHILS % 65 % (51-67); TOTAL CELLS COUNTED 100
[2016-08-05 09:38] LABS: ALBUMIN 3.7 g/dL (3.4-5.0); ANION GAP 8.7 MEQ/L (3-15); CALCULATED IONIZED CALCIUM 4.3 mg/dL (3.8-4.6); TOTAL PROTEIN 6.2 g/dL (6.4-8.5)
== END ==
LOC: LAB 09:10
PROVIDERS: ATTEND Internal Medicine Hematology & Oncology
DX: D53.9 Nutritional anemia, unspecified (principal); D46.Z Other myelodysplastic syndromes
CPT/HCPCS: 80053; 85025

== ENCOUNTER 2016-08-08 09:47 | Outpatient (RCR) | payer MEDICARE ==
[2016-08-08] VITALS (18 sets, daily range): BP systolic 128–148; BP diastolic 42–52
[2016-08-08] MEDS ORDERED: SODIUM CHLORIDE FLUSH 3 ML SYR IV PRN (16:00)
[2016-08-08] MEDS ORDERED: NS 250 ML (IVPB) BAG IV SCH (16:00)
[2016-08-08] MEDS ORDERED: diphenhydrAMINE 25 MG (BENADRYL) TABLET PO SCH (16:00)
[2016-08-08] MEDS ORDERED: LMX 4 KIT (LIDOCAINE 4% 5 GM TUBE/TRANSPARENT DRESSING) TOP PRN (16:00)
[2016-08-08] MEDS ORDERED: ACETAMINOPHEN 325 MG TAB (TYLENOL) PO SCH (16:00)
[2016-08-08] MEDS: SODIUM CHLORIDE FLUSH 10 ML SYR IV PRN ×2 (22:15→22:20)
--- NOTE | 2016-08-08 22:15 | NUR ---
Port not de-accessed following transfusion per patient for lab draw to follow this week. Flushed per protocol with access ports capped with caps provided by patient from clinic. 2229 - Discharged to home accompanied by daughter. To car via wheelchair.
== END 2016-08-08 22:30 | disposition home or self-care (01) ==
LOC: EUOP 09:47 → OB 15:47 → EUOP 22:30
PROVIDERS: ATTEND Internal Medicine Hematology & Oncology
DX: D53.9 Nutritional anemia, unspecified (principal)
CPT/HCPCS: 36415; 36430; 86850; 86900; 86901; 86920; A9270; J1642; J7050; P9040; 85014; 85018

== ENCOUNTER → 2016-08-10 | Outpatient (REF) | payer MEDICARE ==
[2016-08-10 09:12] LABS: MEAN CORPUSCULAR HEMOGLOBIN 29.6 PG (26.0-34.0); MEAN CORPUSCULAR HGB CONC 32.5 g/dL (31.0-37.0); MEAN CORPUSCULAR VOLUME 91 FL (80-100); MEAN PLATELET VOLUME 11.9 FL (6.0-9.5); PLATELET COUNT 89 10^3uL (150-450); WHITE BLOOD COUNT 4.18 10^3uL (4.0-11.0)
[2016-08-10 09:13] LABS: BAND NEUTROPHILS % 1 % (0-6); EOSINOPHILS % 4 % (0-4); LYMPHOCYTES # 1.2 #; MONOCYTES # 0.4 #; MONOCYTES % 11 % (3-11); RBC MORPH SEE REFERENCE (NORMAL); SEGMENTED NEUTROPHILS % 53 % (51-67); TOTAL CELLS COUNTED 100
[2016-08-10 09:14] LABS: ANISOCYTOSIS MODERATE
== END ==
LOC: LAB 08:35
PROVIDERS: ATTEND Internal Medicine Hematology & Oncology
DX: D53.9 Nutritional anemia, unspecified (principal)
CPT/HCPCS: 85025